=== PATIENT | male | born 1965 | race Hispanic/Latino ===

== ENCOUNTER 2022-10-12 07:35 | Outpatient (CLI) | payer OTHER | END 2022-10-12 07:36 | disposition home or self-care (01) | LOC: BICULT 07:35 | PROVIDERS: ATTEND Family Medicine | DX: I82.402 Acute embolism and thrombosis of unspecified deep veins of left lower extremity (principal); I82.432 Acute embolism and thrombosis of left popliteal vein ==

== ENCOUNTER 2023-03-05 09:19 | Outpatient (CLI) | payer OTHER | END 2023-03-05 09:20 | disposition home or self-care (01) | LOC: BICULT 09:19 | PROVIDERS: ATTEND Nurse Practitioner Family | DX: I82.402 Acute embolism and thrombosis of unspecified deep veins of left lower extremity (principal) ==